=== PATIENT | male | born 1960 | race Caucasian/White ===

== ENCOUNTER 2023-03-15 12:29 | Emergency (ER) | payer BC ==
[~2023-03-15] VITALS: Ht 172.7 cm; Wt 83.5 kg
[~2023-03-15 12:29] MED LIST: ALLOPURINOL100 MG PO; CRESTOR20 MG PO; DIOVAN40 MG PO; FISH OIL1000 MG PO; INDOCIN25 MG PO; LOPRESSOR PO; LOPRESSOR50 MG PO; PERCOCET 325 MG1 TA5 PO; PREVACID15 MG PO; TORADOL10 MG PO
[2023-03-15 13:24] LABS: BASO % 0.6 % (0.0-1.0); EOS % 0.8 % (1.0-4.0); HEMATOCRIT 41.7 % (42.0-52.0); LYMPH # 0.4 10*3/uL (1.3-4.4); LYMPH % 7.6 % (27.0-41.0); MEAN CELL VOLUME 89.1 fl (80.0-94.0); MEAN CORPUSCULAR HGB 31.6 pg (27.0-31.0); MEAN CORPUSCULAR HGB CONC 35.5 g/dl (33.0-37.0); MEAN PLATELET VOLUME 10.5 fl (9.6-12.3); MONO # 0.5 10*3/uL (0.1-1.0); MONO % 10.5 % (3.0-9.0); NEUT # 4.1 10*3/uL (2.3-7.9); NEUT % 80.3 % (47.0-73.0); PLATELET COUNT AUTOMATED 157 10*3/uL (130-400); RED BLOOD COUNT 4.68 10*6/uL (4.50-5.90); RED CELL DISTRI WIDTH 13.2 % (0-14.5); WHITE BLOOD COUNT 5.1 10*3/uL (4.8-10.8)
[2023-03-15 13:45] LABS: ALKALINE PHOSPHATASE 106 U/L (46-116); BUN 8 mg/dl (9-23); CHLORIDE 102 mmol/L (98-107); POTASSIUM 3.9 mmol/L (3.4-5.1); SGPT/ALT 44 U/L (5-49); TOTAL PROTEIN 7.5 gm/dL (6.0-8.0)
[2023-03-15 14:41] LABS: BILIRUBIN Negative (Negative); BLOOD Trace-Lysed (Negative); CLARITY Clear (Clear); COLOR Yellow (Yellow); GLUCOSE Negative (Negative); KETONE Negative (Negative); LEUKO ESTERASE Negative (Negative); NITRITE Negative (Negative); SPECIFIC GRAVITY 1.025 (1.001-1.030); UROBILINOGEN 0.2 E.U./dl (0.0-1.0)
[2023-03-15 15:11] LABS: BACTERIA 1+; MUCOUS 1+
[2023-03-15] MEDS ORDERED: FLOMAX0.4 MG PO (16:59)
[2023-03-15] MEDS ORDERED: NAPROSYN500 MG PO (16:59)
[2023-03-15] MEDS ORDERED: ONDANSETRON4 MG SL (16:59)
== END 2023-03-15 18:32 | disposition home or self-care (01) ==
LOC: ED 12:29
PROVIDERS: Family Medicine
DX: N20.0 Calculus of kidney (principal); E11.9 Type 2 diabetes mellitus without complications; I10 Essential (primary) hypertension; E78.00 Pure hypercholesterolemia, unspecified; E78.5 Hyperlipidemia, unspecified; Z88.5 Allergy status to narcotic agent; Z88.8 Allergy status to other drugs, medicaments and biological substances; Z98.890 Other specified postprocedural states